=== PATIENT | male | born 2000 | race African-American/Black ===

== ENCOUNTER 2023-07-17 22:21 | Emergency (ER) | payer MEDICAID, OTHER ==
[~2023-07-17] VITALS: Ht 175.3 cm; Wt 109.9 kg
[2023-07-17 22:27] VITALS: O2SAT 100
[2023-07-18] MEDS ORDERED: KETOROLAC 30MG/ML VIAL IM ONE
[2023-07-18 00:27] VITALS: BP 176/72
[2023-07-18] MEDS ORDERED: NAPR-681 MT (01:40)
[2023-07-18 02:17] VITALS: PULSE 60; RESP 16; TEMP 97.9
== END 2023-07-18 02:19 | disposition home or self-care (01) ==
LOC: ER 22:21
DX: S80.02XA Contusion of left knee, initial encounter (principal); S83.412A Sprain of medial collateral ligament of left knee, initial encounter; X58.XXXA Exposure to other specified factors, initial encounter; Y93.89 Activity, other specified; Y92.89 Other specified places as the place of occurrence of the external cause; Y99.8 Other external cause status
CPT/HCPCS: 99283; 73562; J1885; 96372